=== PATIENT | female | born 1970 | race Caucasian/White ===

== ENCOUNTER 2020-12-12 07:34 | Emergency (ER) | payer OTHER ==
[~2020-12-12] VITALS: Ht 162.6 cm; Wt 72.7 kg
[~2020-12-12 07:34] MED LIST: EXCEDRIN PO; FLINTSTONES PO; HYDROCHLOROT25 MG PO; LABETALOL100 MG PO; LABETALOL200 MG PO; LISINOPRIL10 MG PO; LORTAB 5/3255 MG PO; LORTAB 7.57.5 MG PO; MEDDOSEPAK PO; METOPROL TAR25 MG PO; METOPROLOL TART50 MG PO
[2020-12-12] MEDS ORDERED: LISINOPRIL5 MG PO (07:46)
[2020-12-12] MEDS ORDERED: EXCEDRIN MIGRAINE PO (07:47)
[2020-12-12] MEDS ORDERED: LISINOPRIL20 MG PO (07:59)
[2020-12-12 08:24] LABS: HEMATOCRIT 48.3 % (37.0-47.0); HEMOGLOBIN 16.1 g/dl (12.0-16.0); IMMATURE GRANULOCYTES 0.1 % (0.0-5.0); MEAN CELL VOLUME 88.8 fL CALC (80.0-100.0); MEAN CORPUSCULAR HGB 29.6 pG CALC (26.0-32.0); MEAN CORPUSCULAR HGB CONC 33.3 g/dL CAL (32.0-36.0); NEUT# 5.3 thou/uL (2.00-7.15); RED BLOOD COUNT 5.44 mill/uL (4.20-5.60); RED CELL DISTRI WIDTH 13.2 % (11.5-15.5)
[2020-12-12 08:40] LABS: URINE BILIRUBIN - DIPSTICK NEGATIVE (NEGATIVE); URINE BLOOD DIPSTICK TRACE-INTACT (NEGATIVE); URINE COLOR YELLOW; URINE GLUCOSE - DIPSTICK NEGATIVE (NEGATIVE); URINE KETONE NEGATIVE (NEGATIVE); URINE LEUK ESTERASE NEGATIVE (NEGATIVE); URINE PH 6.5 (4.5-8.0); URINE PROTEIN - DIPSTICK 30 mg/dL (NEG-TRACE); URINE SPECIFIC GRAVITY 1.025; URINE UROBILINOGEN - DIPSTICK 0.2 E.U./dL (0.2)
[2020-12-12 08:42] LABS: URINE NITRITE - DIPSTICK NEGATIVE (Negative)
[2020-12-12 08:42] LABS: ALBUMIN 4.8 g/dL (3.2-5.0); ALKALINE PHOSPHATASE 180 u/l (38-126); ANION GAP 13 (6-22 (CALC)); BUN 16 mg/dL (7-17); BUN/CREATININE RATIO 21 (12-20 (CALC)); CARBON DIOXIDE 28 mmol/l (22-30); CHLORIDE 101 mmol/l (95-108); CREATININE 0.8 mg/dL (0.5-1.0); GFR > 60 ML/MIN (>=60 (CALC)); GFR FOR AFR.AMER. > 60 ML/MIN (>=60 (CALC)); POTASSIUM 3.4 mmol/l (3.5-5.1); SGOT/AST 52 u/l (14-36); SODIUM 139 mmol/l (137-146)
[2020-12-12 08:45] LABS: BILIRUBIN, TOTAL 0.7 mg/dL (0.0-1.4)
[2020-12-12 08:52] LABS: URINE RBC 0-2 RBC/hpf (0-5); URINE SQUAMOUS EPITHELIAL CELL FEW EPI/hpf (0-FEW)
[2020-12-12] MEDS ORDERED: NORVASC5 M1 PO (10:37)
[2020-12-12 10:50] VITALS: BP 195/95
== END 2020-12-12 10:50 | disposition home or self-care (01) ==
LOC: ED 07:34
PROVIDERS: Family Medicine
DX: R04.2 Hemoptysis (principal); I10 Essential (primary) hypertension; F17.200 Nicotine dependence, unspecified, uncomplicated; Z20.822 Contact with and (suspected) exposure to COVID-19

== ENCOUNTER 2021-02-25 13:10 | Emergency (ER) | payer OTHER ==
[~2021-02-25] VITALS: Ht 162.6 cm; Wt 75.0 kg
[~2021-02-25 13:10] MED LIST changes: +EXCEDRIN MIGRAINE PO; +LISINOPRIL20 MG PO; +LISINOPRIL5 MG PO; +NORVASC5 M1 PO
[2021-02-25 13:50] LABS: HEMATOCRIT 44.4 % (37.0-47.0); HEMOGLOBIN 14.8 g/dl (12.0-16.0); IMMATURE GRANULOCYTES 0.1 % (0.0-5.0); MEAN CELL VOLUME 91.2 fL CALC (80.0-100.0); MEAN CORPUSCULAR HGB 30.4 pG CALC (26.0-32.0); MEAN CORPUSCULAR HGB CONC 33.3 g/dL CAL (32.0-36.0); NEUT# 6.78 thou/uL (2.00-7.15); RED BLOOD COUNT 4.87 mill/uL (4.20-5.60); RED CELL DISTRI WIDTH 13.9 % (11.5-15.5)
[2021-02-25 14:00] LABS: ALBUMIN 4.7 g/dL (3.2-5.0); ALKALINE PHOSPHATASE 161 u/l (38-126); ANION GAP 16 (6-22 (CALC)); BILIRUBIN, TOTAL 0.5 mg/dL (0.0-1.4); BUN 19 mg/dL (7-17); BUN/CREATININE RATIO 19 (12-20 (CALC)); CARBON DIOXIDE 23 mmol/l (22-30); CHLORIDE 104 mmol/l (95-108); GFR 59 ML/MIN (>=60 (CALC)); GFR FOR AFR.AMER. > 60 ML/MIN (>=60 (CALC)); POTASSIUM 3.9 mmol/l (3.5-5.1); SGOT/AST 41 u/l (14-36); SODIUM 139 mmol/l (137-146); TOTAL PROTEIN 8.4 g/dL (6.3-8.2)
[2021-02-25 14:33] VITALS: BP 194/103
== END 2021-02-25 14:32 | disposition short-term general hospital (02) ==
LOC: ED 13:10
DX: S82.252A Displaced comminuted fracture of shaft of left tibia, initial encounter for closed fracture (principal); S82.402A Unspecified fracture of shaft of left fibula, initial encounter for closed fracture; M54.50 Low back pain, unspecified; I10 Essential (primary) hypertension; F17.200 Nicotine dependence, unspecified, uncomplicated; W11.XXXA Fall on and from ladder, initial encounter; Y92.009 Unspecified place in unspecified non-institutional (private) residence as the place of occurrence of the external cause